=== PATIENT | female | born 1955 | race Caucasian/White ===

== ENCOUNTER 2020-08-19 13:35 | Outpatient (CLI) | payer OTHER ==
[2020-08-19 14:32] LABS: ANION GAP 4 mmol/L (5-15); CALCIUM 9.2 mg/dL (8.5-10.1); CHLORIDE 112 mmol/L (98-107); CREATININE 1.05 mg/dL (0.55-1.02)
[2020-08-19] MEDS ORDERED: GADOTERATE 10 MMOL/20 ML VIAL ONE (14:45)
[2020-08-23] MEDS ORDERED: LOVA10TA PO (20:44)
[2020-08-24] MEDS ORDERED: FAMO20TA7 PO (11:50)
[2020-08-24] MEDS ORDERED: DEXA4VIA39 IVPush (11:50)
[2020-08-24] MEDS ORDERED: LEVE500T53 PO (11:50)
== END 2020-08-19 23:59 | disposition home or self-care (01) ==
LOC: RAD 13:35
PROVIDERS: ATTEND Family Medicine
DX: G93.0 Cerebral cysts (principal); G31.9 Degenerative disease of nervous system, unspecified; I10 Essential (primary) hypertension; R94.09 Abnormal results of other function studies of central nervous system; G81.91 Hemiplegia, unspecified affecting right dominant side; R27.0 Ataxia, unspecified
CPT/HCPCS: 36415; 70553; 80048; A9575

== ENCOUNTER 2020-09-23 07:27 | Outpatient (CLI) | payer OTHER ==
[~2020-09-23 07:27] MED LIST: DEXA4VIA39 IVPush; FAMO20TA7 PO; LEVE500T53 PO; LOVA10TA PO
== END 2020-09-23 23:59 | disposition home or self-care (01) ==
LOC: ROC 07:27
PROVIDERS: ATTEND Radiology Radiation Oncology
DX: C79.31 Secondary malignant neoplasm of brain (principal); I10 Essential (primary) hypertension; E78.5 Hyperlipidemia, unspecified; Z90.49 Acquired absence of other specified parts of digestive tract
CPT/HCPCS: 99214; G0463

== ENCOUNTER → 2020-09-28 | Outpatient (CLI) | payer OTHER ==
[~2020-09-28] MED LIST changes: +GADOTERATE 7.5 MMOL/15 ML VIAL ONE
== END | disposition home or self-care (01) ==
LOC: RAD 13:05
PROVIDERS: ATTEND Radiology Radiation Oncology
DX: C79.31 Secondary malignant neoplasm of brain (principal); I61.9 Nontraumatic intracerebral hemorrhage, unspecified
CPT/HCPCS: 70553; A9575

== ENCOUNTER 2020-11-04 03:06 | Emergency (ER) | payer OTHER ==
[~2020-11-04] VITALS: Ht 170.2 cm; Wt 75.1 kg
[~2020-11-04 03:06] MED LIST changes: -GADOTERATE 7.5 MMOL/15 ML VIAL ONE
--- NOTE | 2020-11-04 03:17 | NUR ---
Patient BIBA c/o bilat arm spasms x1 hr which woke her up. R arm is worse. Patient has a hx of the same and states the last time she experienced this, she had two brain tumors. Patient has since had the tumors removed with no complications since. Patient is in NAD. Respirations even and unlabored. No tremors or spasms noted; patient has full movement of upper extremities.
[2020-11-04 03:42] LABS: BASOPHILS % (AUTO) 1 % (0-1); EOSINOPHILS % (AUTO) 3 % (1-7); LYMPHOCYTES % (AUTO) 24 % (22-44); MEAN CORPUSCULAR HEMOGLOBIN 30.8 pg (27.0-34.8); MEAN CORPUSCULAR HGB CONC 33.3 g/dL (32.4-35.8); MEAN PLATELET VOLUME 9.6 fL (7.4-10.4); MONOCYTES % (AUTO) 12 % (2-9); NEUTROPHILS % (AUTO) 60 % (42-75); PLATELET COUNT 198 x10^3/uL (130-400); RED BLOOD COUNT 3.85 x10^6/uL (3.82-5.3); RED CELL DISTRIBUTION WIDTH 12.5 % (9.6-15.2)
[2020-11-04 03:50] LABS: ALANINE AMINOTRANSFERASE 20 U/L (12-78); ALBUMIN 3.1 g/dL (3.4-5.0); ANION GAP 7 mmol/L (5-15); CALCIUM 8.3 mg/dL (8.5-10.1); CHLORIDE 113 mmol/L (98-107); CREATININE 0.67 mg/dL (0.55-1.02)
[2020-11-04 03:54] LABS: ALKALINE PHOSPHATASE 73 U/L (45-117); BILIRUBIN,TOTAL 0.2 mg/dL (0.2-1.0); TOTAL PROTEIN 6.3 g/dL (6.4-8.2); TROPONIN I < 0.015 ng/mL (0.000-0.045)
[2020-11-04 04:17] LABS: MD SCAN
[2020-11-04] MEDS ORDERED: LORazepam 2 MG/ML, 1ML ONE (04:18)
[2020-11-04] MEDS ORDERED: LORazepam 2 MG/ML, 1ML IVPush ONE (04:30)
[2020-11-04 06:09] VITALS: BP 116/71
== END 2020-11-04 06:21 | disposition home or self-care (01) ==
LOC: ED 04:12
DX: G40.209 Localization-related (focal) (partial) symptomatic epilepsy and epileptic syndromes with complex partial seizures, not intractable, without status epilepticus (principal); M62.838 Other muscle spasm; R94.31 Abnormal electrocardiogram [ECG] [EKG]; I10 Essential (primary) hypertension; Z85.841 Personal history of malignant neoplasm of brain
CPT/HCPCS: 36415; 70450; 80053; 84484; 85025; 93005; 96374; 99285; J2060

== ENCOUNTER → 2020-11-06 | Outpatient (CLI) | payer OTHER | END | disposition home or self-care (01) | LOC: RAD 10:00 | PROVIDERS: ATTEND Pathology Hematology | DX: C43.9 Malignant melanoma of skin, unspecified (principal) | CPT/HCPCS: 78306; A9503 ==

== ENCOUNTER → 2020-12-01 | Outpatient (CLI) | payer OTHER ==
[~2020-12-01] MED LIST changes: +DEXA4TAB66 PO
== END | disposition home or self-care (01) ==
LOC: ROC 09:53
PROVIDERS: ATTEND Radiology Radiation Oncology
DX: Z08 Encounter for follow-up examination after completed treatment for malignant neoplasm (principal); Z85.841 Personal history of malignant neoplasm of brain; E86.0 Dehydration; I10 Essential (primary) hypertension; Z79.01 Long term (current) use of anticoagulants; Z79.891 Long term (current) use of opiate analgesic; Z79.899 Other long term (current) drug therapy
CPT/HCPCS: 99213; G0463

== ENCOUNTER 2021-01-18 16:06 | Inpatient (IN) | payer OTHER ==
[~2021-01-18] VITALS: Ht 170.2 cm; Wt 87.1 kg
[~2021-01-18 16:06] MED LIST changes: +CHOL10003 PO
[2021-01-18 19:43] VITALS: BP 119/80
[2021-01-18 20:21] VITALS: BP 119/80
[2021-01-18] MEDS ORDERED: ENOX40SY4 SQ ×2 (20:32→22:37)
[2021-01-18] MEDS ORDERED: LACTATED RINGERS 1,000 ML IV SCH (22:30)
[2021-01-18] MEDS ORDERED: ONDANSETRON 2MG/ML, 2ML IVPush PRN (22:30)
[2021-01-18] MEDS ORDERED: MELATONIN 5 MG TABLET PO PRN (22:30)
[2021-01-18] MEDS ORDERED: PIPERACILLIN/TAZO 3.375 GM in DEXTROSE 5% 50 ML IV SCH (22:30)
[2021-01-18] MEDS ORDERED: DOCUSATE 100 MG CAPSULE PO PRN (22:30)
[2021-01-18] MEDS ORDERED: LIDODERM 5% PATCH TD PRN (22:30)
[2021-01-18] MEDS ORDERED: POTA500T PO (22:31)
[2021-01-18] MEDS ORDERED: MIDO5TAB4 PO (22:37)
[2021-01-18] MEDS ORDERED: ATOR40TA78 PO (22:40)
[2021-01-18] MEDS ORDERED: PIPE4.5F2 IV (22:40)
[2021-01-18] MEDS ORDERED: HYDR100V3 IV (22:40)
[2021-01-18] MEDS ORDERED: LEVE100020 PO (22:42)
[2021-01-18] MEDS ORDERED: ONDA4TAB7 IV (22:47)
[2021-01-18] MEDS ORDERED: PROC25SU25 IV (22:47)
[2021-01-18] MEDS ORDERED: ACET325C6 PO (22:48)
[2021-01-18] MEDS ORDERED: ZOSYN MC SCH ×2 (23:00)
[2021-01-19] MEDS: PIPERACILLIN/TAZO 4.5 GM in DEXTROSE 5% 100 ML IV SCH ×3 (00:25→16:11)
[2021-01-19 00:45] VITALS: BP 105/71
[2021-01-19] MEDS ORDERED: ACETAMINOPHEN 325 MG TABLET PO SCH (01:00)
[2021-01-19] MEDS ORDERED: POTASSIUM ACID PHOSPHATE 500 MG TABLET.SOL PO SCH (01:00)
[2021-01-19] MEDS ORDERED: ACETAMINOPHEN 325 MG TABLET PO PRN (01:30)
[2021-01-19] MEDS: HYDROCORTISONE 100 MG INJ. IVPush SCH ×2 (05:00→13:11)
[2021-01-19] MEDS: ENOXAPARIN 40 MG/0.4 ML SQ SCH (05:40)
[2021-01-19 05:58] LABS: MEAN CORPUSCULAR HEMOGLOBIN 30.8 pg (27.0-34.8); MEAN CORPUSCULAR HGB CONC 35.2 g/dL (32.4-35.8); MEAN PLATELET VOLUME 8.6 fL (7.4-10.4); PLATELET COUNT 247 x10^3/uL (130-400); RED BLOOD COUNT 3.43 x10^6/uL (3.82-5.3); RED CELL DISTRIBUTION WIDTH 16.4 % (9.6-15.2)
[2021-01-19 06:08] LABS: CHLORIDE 115 mmol/L (98-107)
[2021-01-19 06:16] LABS: ALANINE AMINOTRANSFERASE 126 U/L (12-78); ALBUMIN 1.8 g/dL (3.4-5.0); ALKALINE PHOSPHATASE 91 U/L (45-117); ANION GAP 7 mmol/L (5-15); BILIRUBIN,TOTAL 0.3 mg/dL (0.2-1.0); CREATININE 0.43 mg/dL (0.55-1.02); TOTAL PROTEIN 4.6 g/dL (6.4-8.2)
[2021-01-19 06:26] LABS: BAND#(MANUAL) 0.89 x10^3/uL; BANDS%(MANUAL) 9 % (0-7); LYMPH#(MANUAL) 0.59 x10^3/uL (1-3.4); LYMPHS% (MANUAL) 6 % (22-44); MONOS% (MANUAL) 4 % (2-9); SEG#(MANUAL) 8.02 x10^3/uL (1.8-6.8); SEGS% (MANUAL) 81 % (42-75)
[2021-01-19 06:27] LABS: ANISOCYTOSIS 1+
[2021-01-19 06:28] LABS: OVALOCYTES 1+
[2021-01-19 06:29] LABS: <PLATELET ESTIMATE> ADEQUATE; <PLT MORPHOLOGY> NORMAL PLT MORPH
[2021-01-19 06:30] LABS: TEAR DROPS 1+
[2021-01-19] MEDS ORDERED: SODIUM PHOSPHATE 40 MMOL in SODIUM CHLORIDE 0.9% 500 ML IV ONE (07:00)
[2021-01-19 07:32] VITALS: BP 107/72
[2021-01-19] MEDS: LEVETIRACETAM 500 MG TABLET PO SCH ×2 (08:11→21:15)
[2021-01-19] MEDS: MIDODRINE 5 MG TABLET PO SCH ×3 (08:12→21:15)
[2021-01-19] MEDS: POTASSIUM CHLORIDE 20 MEQ TAB.ER.PRT PO SCH ×3 (08:12→16:18)
[2021-01-19 12:12] VITALS: BP 115/76
[2021-01-19] MEDS ORDERED: GADOTERATE 10 MMOL/20ML SYR ONE (14:37)
[2021-01-19 19:36] VITALS: BP 110/74
[2021-01-19] MEDS ORDERED: ATORVASTATIN 40 MG TABLET PO SCH (21:00)
[2021-01-20] MEDS: PIPERACILLIN/TAZO 4.5 GM in DEXTROSE 5% 100 ML IV SCH ×2 (00:17→09:09)
[2021-01-20 02:04] VITALS: BP 119/73
[2021-01-20] MEDS: ENOXAPARIN 40 MG/0.4 ML SQ SCH (05:25)
[2021-01-20 06:12] LABS: ANION GAP 8 mmol/L (5-15); CALCIUM 6.2 mg/dL (8.5-10.1); CHLORIDE 115 mmol/L (98-107)
[2021-01-20 06:16] LABS: ALANINE AMINOTRANSFERASE 148 U/L (12-78); ALKALINE PHOSPHATASE 133 U/L (45-117); BILIRUBIN,TOTAL 0.3 mg/dL (0.2-1.0); CREATININE 0.54 mg/dL (0.55-1.02)
[2021-01-20 07:23] VITALS: BP 111/74
[2021-01-20] MEDS ORDERED: POTASSIUM CHLORIDE 20 MEQ TAB.ER.PRT PO SCH (08:00)
[2021-01-20] MEDS ORDERED: CALCIUM CARBONATE 500 MG TAB.CHEW PO SCH (09:00)
[2021-01-20] MEDS: MIDODRINE 5 MG TABLET PO SCH (09:10)
[2021-01-20] MEDS: LEVETIRACETAM 500 MG TABLET PO SCH (09:10)
[2021-01-20] MEDS ORDERED: SODIUM PHOSPHATE 40 MMOL in SODIUM CHLORIDE 0.9% 500 ML IV ONE (11:00)
[2021-01-20] MEDS ORDERED: MIDO5TAB9 PO (11:52)
[2021-01-20] MEDS ORDERED: LEVO750T6 PO (11:52)
[2021-01-20 12:39] VITALS: BP 103/73
== END 2021-01-20 15:56 | disposition left against medical advice (07) | DRG 54 ==
LOC: 4EST 19:16
PROVIDERS: ADMIT Internal Medicine; ATTEND Internal Medicine
DX: C79.31 Secondary malignant neoplasm of brain (principal); E43 Unspecified severe protein-calorie malnutrition; E27.40 Unspecified adrenocortical insufficiency; R65.10 Systemic inflammatory response syndrome (SIRS) of non-infectious origin without acute organ dysfunction; C43.9 Malignant melanoma of skin, unspecified; R33.9 Retention of urine, unspecified; R53.81 Other malaise; R74.01 Elevation of levels of liver transaminase levels; I95.9 Hypotension, unspecified; E87.8 Other disorders of electrolyte and fluid balance, not elsewhere classified; S31.000A Unspecified open wound of lower back and pelvis without penetration into retroperitoneum, initial encounter; Z90.49 Acquired absence of other specified parts of digestive tract; Y93.89 Activity, other specified; Y92.89 Other specified places as the place of occurrence of the external cause; Y99.8 Other external cause status
CPT/HCPCS: 36415; 70553; 80053; 82330; 83735; 84100; 85025; G0378; J1650; J2543; A9575; J1720; J7040; J7120

== ENCOUNTER 2021-03-29 17:47 | Emergency (ER) | payer OTHER ==
[~2021-03-29] VITALS: Ht 170.2 cm; Wt 72.4 kg
[~2021-03-29 17:47] MED LIST changes: +ACET325C6 PO; +ACET325T26 PO; +ATOR40TA78 PO; +CEPH750C9 PO; +ENOX40SY4 SQ; +FLUD0.1T PO; +HYDR100V3 IV; +LEVE100020 PO; +LEVO750T6 PO; +MIDO5TAB4 PO; +MIDO5TAB9 PO; +ONDA4TAB7 IV; +PIPE4.5F2 IV; +POTA500T PO; +PROC25SU25 IV
[2021-03-29 17:59] VITALS: BP 115/62
[2021-03-29 18:34] LABS: BASOPHILS % (AUTO) 0 % (0-1); EOSINOPHILS % (AUTO) 1 % (1-7); LYMPHOCYTES % (AUTO) 25 % (22-44); MEAN CORPUSCULAR HGB CONC 33.2 g/dL (32.4-35.8); MEAN PLATELET VOLUME 8.2 fL (7.4-10.4); MONOCYTES % (AUTO) 7 % (2-9); NEUTROPHILS % (AUTO) 66 % (42-75); PLATELET COUNT 190 x10^3/uL (130-400); RED BLOOD COUNT 4.77 x10^6/uL (3.82-5.3); RED CELL DISTRIBUTION WIDTH 19.4 % (9.6-15.2)
[2021-03-29 18:45] LABS: ALANINE AMINOTRANSFERASE 41 U/L (12-78); ALBUMIN 2.9 g/dL (3.4-5.0); ANION GAP 7 mmol/L (5-15); CALCIUM 8.6 mg/dL (8.5-10.1); CHLORIDE 103 mmol/L (98-107)
[2021-03-29 18:48] LABS: ALKALINE PHOSPHATASE 79 U/L (45-117); BILIRUBIN,TOTAL 0.5 mg/dL (0.2-1.0); CREATININE 0.59 mg/dL (0.55-1.02); TOTAL PROTEIN 6.7 g/dL (6.4-8.2)
--- NOTE | 2021-03-29 21:15 | NUR ---
mental retardation aide: [email or web address] @[id number]
--- NOTE | 2021-03-29 21:30 | NUR ---
auctioneer art: [email or web address] @[id number]
--- NOTE | 2021-03-29 21:45 | NUR ---
charge machine operator: [email or web address] @[id number]
== END 2021-03-29 22:03 | disposition left against medical advice (07) ==
LOC: ED 20:00
DX: R47.02 Dysphasia (principal); R51.9 Headache, unspecified; Z85.841 Personal history of malignant neoplasm of brain
CPT/HCPCS: 36415; 70450; 80053; 85025; 99284

== ENCOUNTER 2021-04-23 11:45 | Inpatient (IN) | payer OTHER ==
[~2021-04-23] VITALS: Ht 170.2 cm; Wt 74.8 kg
--- NOTE | 2021-04-23 12:04 | NUR ---
BIBA FOR AMS. LAST NORMAL 1929 LAST NIGHT. PT W/ HX OF BRAIN TUMOR, R.SIDE DEFICITS, AND SEIZURES. PER EMS PT SEIZING UPON ARRIVAL. 5 OF VERSED ADMISTERED. BS 470. NO HX DM. PT DOES NOT FOLLOW COMMANDS AND HAS SLURRED SPEECH. SEE NEURO ASSESSMENT. PT POSTIONED TO COMFORT. ATTACHED TO MONITORS. VSS. NADN. AWAITNG ORDRS.
[2021-04-23] MEDS ORDERED: SODIUM CHLORIDE FLUSH 10ML SYR IVF ONE (12:30)
[2021-04-23 12:47] LABS: MICROSCOPIC NOT IND
[2021-04-23 12:48] LABS: MEAN CORPUSCULAR HGB CONC 33.3 g/dL (32.4-35.8); MEAN PLATELET VOLUME 8.4 fL (7.4-10.4); PLATELET COUNT 186 x10^3/uL (130-400); RED BLOOD COUNT 4.05 x10^6/uL (3.82-5.3); RED CELL DISTRIBUTION WIDTH 18.7 % (9.6-15.2)
[2021-04-23 12:58] LABS: ALBUMIN 2.3 g/dL (3.4-5.0); ANION GAP 6 mmol/L (5-15); CALCIUM 8.5 mg/dL (8.5-10.1); CHLORIDE 108 mmol/L (98-107)
[2021-04-23 13:03] LABS: ALANINE AMINOTRANSFERASE 38 U/L (12-78); ALKALINE PHOSPHATASE 75 U/L (45-117); BILIRUBIN,TOTAL 0.2 mg/dL (0.2-1.0); CREATININE 0.57 mg/dL (0.55-1.02); TOTAL PROTEIN 5.9 g/dL (6.4-8.2)
--- NOTE | 2021-04-23 13:16 | NUR ---
TASK RN: ATTEMPTED TO COMPLETE MRI SCREEN FORM. PT UNABLE TO VERBALIZE NAME TO THIS RN. CASIMIRO SPEECH.
[2021-04-23 13:22] LABS: BAND#(MANUAL) 0.13 x10^3/uL; BANDS%(MANUAL) 1 % (0-7); EOS#(MANUAL) 0.13 x10^3/uL (0.0-0.4); EOS% (MANUAL) 1 % (1-7); LYMPH#(MANUAL) 0.76 x10^3/uL (1-3.4); LYMPHS% (MANUAL) 6 % (22-44); MONOS% (MANUAL) 4 % (2-9); SEG#(MANUAL) 11.09 x10^3/uL (1.8-6.8); SEGS% (MANUAL) 88 % (42-75)
[2021-04-23 13:23] LABS: <PLATELET ESTIMATE> ADEQUATE; <PLT MORPHOLOGY> NORMAL PLT MORPH; ANISOCYTOSIS 1+
--- NOTE | 2021-04-23 13:55 | NUR ---
pt resting in bed. vss. to have MRI.
--- NOTE | 2021-04-23 14:14 | NUR ---
PT TO MRI.
--- NOTE | 2021-04-23 15:00 | NUR ---
PT BACK FROM MRI.
--- NOTE | 2021-04-23 18:57 | NUR ---
REPORT RECIEVED FROM KARLA ACEVEDO. CARE ASSUMED AT THIS TIME. PT IS RESTING IN BED. PT IS CONFUSED TO SELF, PLACE, AND SITUATION.
[2021-04-23] MEDS ORDERED: OXYcodone IR 5MG TABLET PO PRN (19:30)
[2021-04-23] MEDS ORDERED: ONDANSETRON 2MG/ML, 2ML IVPush PRN (19:30)
[2021-04-23] MEDS ORDERED: POLYETHYLENE GLYCOL 17 GM PACKET PO PRN (19:30)
[2021-04-23] MEDS ORDERED: LABETALOL 5MG/ML, 20ML IVPush PRN (19:30)
[2021-04-23 20:30] VITALS: BP 158/100
[2021-04-23] MEDS: ACETAMINOPHEN 325 MG TABLET PO PRN (22:38)
[2021-04-23] MEDS: MELATONIN 5 MG TABLET PO PRN (22:38)
[2021-04-23] MEDS: ENOXAPARIN 40 MG/0.4 ML SQ SCH (22:38)
[2021-04-23 23:29] VITALS: BP 141/92
[2021-04-24 06:06] VITALS: BP 152/105
[2021-04-24 09:38] LABS: BASOPHILS % (AUTO) 0 % (0-1); EOSINOPHILS % (AUTO) 1 % (1-7); LYMPHOCYTES % (AUTO) 17 % (22-44); MEAN CORPUSCULAR HEMOGLOBIN 31.1 pg (27.0-34.8); MEAN CORPUSCULAR HGB CONC 33.6 g/dL (32.4-35.8); MONOCYTES % (AUTO) 6 % (2-9); NEUTROPHILS % (AUTO) 77 % (42-75); PLATELET COUNT 177 x10^3/uL (130-400); RED CELL DISTRIBUTION WIDTH 18.7 % (9.6-15.2)
[2021-04-24 09:41] LABS: ANION GAP 8 mmol/L (5-15); CALCIUM 8.7 mg/dL (8.5-10.1); CHLORIDE 107 mmol/L (98-107)
[2021-04-24] MEDS ORDERED: DEXAMETHASONE 4 MG TABLET PO ONE (10:30)
[2021-04-24 12:52] VITALS: BP 122/85
[2021-04-24] MEDS: DEXAMETHASONE 4 MG TABLET PO SCH (17:00)
[2021-04-24 17:05] LABS: MICROSCOPIC INDICATED
[2021-04-24 19:06] VITALS: BP 114/81
[2021-04-24] MEDS: ACETAMINOPHEN 325 MG TABLET PO PRN (19:37)
[2021-04-24] MEDS: MELATONIN 5 MG TABLET PO PRN (19:37)
[2021-04-24] MEDS: ENOXAPARIN 40 MG/0.4 ML SQ SCH (19:37)
[2021-04-25 01:51] VITALS: BP 122/83
[2021-04-25 07:31] VITALS: BP 136/94
[2021-04-25] MEDS: DEXAMETHASONE 4 MG TABLET PO SCH ×2 (07:42→17:21)
[2021-04-25 15:00] VITALS: BP 105/70
[2021-04-25 18:43] VITALS: BP 110/75
[2021-04-25] MEDS: MELATONIN 5 MG TABLET PO PRN (20:46)
[2021-04-25] MEDS: ENOXAPARIN 40 MG/0.4 ML SQ SCH (20:46)
[2021-04-26 00:36] VITALS: BP 118/84
[2021-04-26 08:00] VITALS: BP 124/86
[2021-04-26] MEDS: DEXAMETHASONE 4 MG TABLET PO SCH (08:00)
[2021-04-26] MEDS ORDERED: DEXA4TAB66 PO (10:20)
== END 2021-04-26 11:35 | disposition home or self-care (01) | DRG 54 ==
LOC: ED 17:11 → OBSVTOIN 18:29 → INTOOBSV 18:29 → EDIP 18:29 → 4NW 20:09
PROVIDERS: ADMIT Internal Medicine; ATTEND Hospitalist
DX: C79.31 Secondary malignant neoplasm of brain (principal); G93.41 Metabolic encephalopathy; E27.3 Drug-induced adrenocortical insufficiency; E87.1 Hypo-osmolality and hyponatremia; R47.01 Aphasia; C43.9 Malignant melanoma of skin, unspecified; E78.5 Hyperlipidemia, unspecified; R56.9 Unspecified convulsions; G93.89 Other specified disorders of brain; I10 Essential (primary) hypertension; T38.0X5A Adverse effect of glucocorticoids and synthetic analogues, initial encounter; I95.89 Other hypotension; Z66 Do not resuscitate; Z79.52 Long term (current) use of systemic steroids; Z85.820 Personal history of malignant melanoma of skin; Z85.841 Personal history of malignant neoplasm of brain; Z91.14 Patient's other noncompliance with medication regimen
CPT/HCPCS: 36415; 70553; 71045; 80048; 80053; 81001; 81003; 83735; 85025; 87040; 87086; 93005; 99285; G0378; J1650